=== PATIENT | male | born 1940 | race Caucasian/White ===

== ENCOUNTER 2023-04-02 12:14 | Emergency (ER) | payer MEDICARE, SELFPAY ==
[2023-04-02 12:30] VITALS: BP 151/50; PULSE 86; RESP 20; TEMP 38; O2SAT 100
[2023-04-02 12:43] VITALS: BP 151/50; PULSE 86; RESP 20; TEMP 38; O2SAT 100
--- NOTE | 2023-04-02 12:49 | ED.URI ---
HPI - URI/Sore Throat General Chief Complaint: Upper Respiratory Infection Stated Complaint: Cough/Sinus Source: patient, family and RN notes reviewed History of Present Illness HPI Narrative: 82 yo M presents to urgent care with at side. Pt states he developed congestion and a cough yesterday. Pt tested himself this morning with an Covid test at home and it read +. Pt states he's not sure if the test is accurate b/c it was . Pt denies any chest pain, SOB, vomiting, diarrhea, fevers, chills, or ear pain. Pt has not taken anything for his symptoms. Related Data Home Medications Medication Instructions Recorded Confirmed amlodipine 10 mg tablet mg 04/02/23 aspirin 81 mg chewable tablet 81 mg PO DAILY 04/02/23 04/02/23 fish [id number] C-vit E 2,000 g PO 04/02/23 mg-650 mg-12 mg/2.5 g emulsion packt levothyroxine 50 mcg tablet mcg 04/02/23 losartan 100 tablet 04/02/23 mg-hydrochlorothiazide 25 mg tablet metformin 1,000 mg tablet mg 04/02/23 rosuvastatin 10 mg tablet mg 04/02/23 sitagliptin phosphate 100 mg mg 04/02/23 tablet (Januvia) ticagrelor 90 mg tablet (Brilinta) mg 04/02/23 Allergies Allergy/AdvReac Type Severity Reaction Status Date / Time No Known Allergies Allergy Verified 04/02/23 12:41 Review of Systems Review of Systems: Pertinent positives and pertinent negatives per HPI. [facility] Family History Family History (Updated 03/18/23 @ 11:23 by Beulah Petty, ELEANOR) Father Heart attack Cerebrovascular accident Malignant neoplasm of prostate Diabetes mellitus Sibling Lung cancer Mother Diabetes mellitus Other Cancer Social History Social History Smoking packs per day: 1 Smoking cigarettes per day: 20.0 Years smoked: 12 Smoking pack-years: 12.00 Smoking status: Former smoker Comments At the time of my signature, I reviewed and agree with the nursing past medical, surgical, social, and family history. There is no relevant family history pertinent to the patient complaint. Exam Narrative: GENERAL: This is a well-nourished, well-developed patient, in no apparent distress. HEAD: normocephalic, atraumatic. EYES: Sclera clear/white. Vision is grossly intact. EARS: External ears normal, auditory canals clear and without drainage, TMs normal without perforation. Hearing grossly intact. NOSE: External nose normal with no obvious nasal discharge, nares without redness, no rhinorrhea. THROAT: Mucous membranes moist, posterior pharynx clear. NECK: Neck supple, non-tender without lymphadenopathy, masses or thyromegaly. CARDIOVASCULAR: Regular rate and rhythm without murmurs, gallops, or rubs. RESPIRATORY: Clear to auscultation. Breath sounds equal bilaterally. No wheezes, rales, or rhonchi. SKIN: warm, intact with no suspicious lesions or rash, good texture and turgor. NEURO: awake, alert, and oriented to person, place and time. There were no obvious focal neurologic abnormalities. EXTREMITIES: No clubbing, cyanosis, or edema. No joint tenderness, effusion, or edema noted. BACK: Nontender without deformity or crepitus. No flank tenderness. Course Course Level of Care: Express Care Visit Vital Signs Vital signs: Vital Signs Temperature 100.4 F H 04/02/23 12:30 Pulse Rate 86 04/02/23 12:30 Respiratory Rate 20 04/02/23 12:30 Blood Pressure 151/50 H 04/02/23 12:30 Pulse Oximetry 100 04/02/23 12:30 Oxygen Delivery Room Air 04/02/23 12:30 Temperature 100.4 F H 04/02/23 12:43 Pulse Rate 86 04/02/23 12:43 Respiratory Rate 20 04/02/23 12:43 Blood Pressure 151/50 H 04/02/23 12:43 Pulse Oximetry 100 04/02/23 12:43 Oxygen Delivery Room Air 04/02/23 12:43 reviewed MDM - URI/Sore Throat MDM Narrative Medical decision making narrative: Take the FLonase as directed. Get plenty of fluids and vitamin C (broccoli and peppers are good sources of vitamin C). Call your emergency medicine physician on Tuesday
== END 2023-04-02 12:56 | disposition home or self-care (01) ==
PROVIDERS: Emergency Provider Nurse Practitioner Family; PCP Internal Medicine
DX: U07.1 COVID-19 (principal); Z87.891 Personal history of nicotine dependence
CPT/HCPCS: 99203; G0463

== ENCOUNTER 2023-06-22 13:30 | Outpatient (RCR) | payer MEDICARE, SELFPAY ==
[2023-05-26 14:54] LABS: Glucose Point of Care 88 mg/dl (65-105)
== END 2023-06-22 15:01 | disposition home or self-care (01) ==
LOC: ANHCPREHAB 13:30
DX: Z95.5 Presence of coronary angioplasty implant and graft (principal)
CPT/HCPCS: 93798

== ENCOUNTER 2023-09-07 01:12 | Day surgery (SDC) | payer MEDICARE, SELFPAY ==
[2023-08-19 14:40] VITALS: BMI 25.9
--- NOTE | 2023-09-01 16:05 | PC.NURSE ---
Spoke with patient regarding medication BRILINTA. Pt. verbalizes understanding that the last dose of BRILINTA is to be taken on 09/02/2023 and the Endoscopist will instruct them when to restart after the procedure.
--- NOTE | 2023-09-05 09:18 | SUR.PREOP ---
Patient called regarding upcoming procedure. Reviewed preop instructions, appointment times, and procedure prep.
--- NOTE | 2023-09-06 18:36 | PM.HPGS ---
History of Present Illness History of Present Illness Consent: Risks, benefits, and alternatives have been discussed and questions answered. Patient agrees to proceed with procedure. Chief complaint: hx of other malignant neoplasm of large intestine Narrative: Ernesto Castro Jr. is a 83 year old male With a history of colon cancer (dx in 2017, s/p sigmoid colon resection and chemo) is referred for evaluation of rectal bleeding. Pt states he noticed blood go down the drain while taking a shower last Tuesday. When he got out of the shower and dried off, he realized it was coming from the rectum. States it was about a tsp of blood. He has not seen any rectal bleeding since. His last colonoscopy was [address] Reis. Review of Systems Review of Systems: All systems reviewed & are unremarkable except as noted in HPI and below PMFSH Past Medical History Medical History CAD (coronary artery disease) History of colon cancer HLD (hyperlipidemia) HTN (hypertension) Rectal bleeding Family History Family History Father Heart attack Cerebrovascular accident Malignant neoplasm of prostate Diabetes mellitus Sibling Lung cancer Mother Diabetes mellitus Other Cancer Social History Social History Smoking packs per day: 1 Smoking cigarettes per day: 20.0 Years smoked: 12 Smoking pack-years: 12.00 Smoking status: Former smoker Tobacco type: cigarettes Substance use type: does not use Living arrangements: with family Spiritual care concerns: No Meds Home Medications and Allergies Home Medications Medication Instructions Recorded Confirmed Type amlodipine 10 mg tablet 10 mg PO DAILY 04/02/23 08/19/23 History aspirin 81 mg chewable tablet 81 mg PO DAILY 04/02/23 08/19/23 History levothyroxine 50 mcg tablet 50 mcg PO DAILY 04/02/23 08/19/23 History losartan 100 1 tablet PO DAILY 04/02/23 08/19/23 History mg-hydrochlorothiazide 25 mg tablet metformin 1,000 mg tablet 1,000 mg PO BID 04/02/23 08/19/23 History rosuvastatin 10 mg tablet 10 mg PO DAILY 04/02/23 08/19/23 History sitagliptin phosphate 100 mg 100 mg PO DAILY 04/02/23 08/19/23 History tablet (Januvia) ticagrelor 90 mg tablet (Brilinta) 90 mg PO BID 04/02/23 08/19/23 History ascorbic acid (vitamin C) 500 mg 500 mg PO DAILY 08/19/23 08/19/23 History tablet cholecalciferol (vitamin D3) 25 25 mcg PO DAILY 08/19/23 08/19/23 History mcg (1,000 unit) tablet (Vitamin D3) ferrous sulfate 325 mg (65 mg 325 mg PO DAILY 08/19/23 08/19/23 History iron) tablet glimepiride 2 mg tablet 2 mg PO DAILY 08/19/23 08/19/23 History hydrocortisone 1 % topical cream 1 applic RECTAL BID 08/19/23 08/19/23 History with perineal applicator multivitamin with minerals-folic 1 tablet PO DAILY 08/19/23 08/19/23 History acid 0.4 mg tablet naproxen 500 mg tablet 500 mg PO BID PRN Pain 08/19/23 08/19/23 History Allergies Allergy/AdvReac Type Severity Reaction Status Date / Time No Known Allergies Allergy Verified 09/07/23 11:08 Exam Resp: Auscultation: clear to auscultation bilaterally Cardio: Rate: regular rate Rhythm: regular rhythm GI: GI Palp: Yes Soft to palpation and No Tenderness to palpation present (GI) Assessment and Plan Assessment and plan (1) History of colon cancer: Code(s): Z85.038 - Personal history of other malignant neoplasm of large intestine Status: Acute Assessment and Plan: Colonoscopy with possible biopsy or polypectomy or cautery or injection of substances. (2) Rectal bleeding: Code(s): K62.5 - Hemorrhage of anus and rectum Status: Acute
[2023-09-07 11:15] VITALS: BP 154/61; PULSE 62; RESP 19; TEMP 36.2; O2SAT 100
[2023-09-07 11:27] LABS: Glucose Point of Care 118 mg/dl (65-105)
[2023-09-07] MEDS: LACTATED RINGERS 1,000 ML 150 ML IV CONT (11:27)
--- NOTE | 2023-09-07 12:24 | WPDANESEPPF ---
Anes - Initial Pre Proc Eval Procedure: Operation Date: 09/07/23 12:30 Proposed Procedures p Colonoscopy - Phuc Jacobsne MD Date/Time: 09/07/23 12:24 Surgeon: Phuc Jacobsen MD Pre Op Diagnosis: hx of other malignant neoplasm of large intestine Patient Data Age: 83 Gender: M Height: 1.83 m Weight: 87.9 kg Last Vital Signs Temp 97.2 F L 09/07/23 11:15 Pulse 62 09/07/23 11:15 Resp 19 09/07/23 11:15 BP 154/61 H 09/07/23 11:15 Pulse Ox 100 09/07/23 11:15 O2 Del Method Room Air 09/07/23 11:15 Allergies Allergy/AdvReac Type Severity Reaction Status Date / Time No Known Allergies Allergy Verified 09/07/23 11:08 Home Medications Medication Instructions Recorded Confirmed Type amlodipine 10 mg tablet 10 mg PO DAILY 04/02/23 08/19/23 History aspirin 81 mg chewable tablet 81 mg PO DAILY 04/02/23 08/19/23 History levothyroxine 50 mcg tablet 50 mcg PO DAILY 04/02/23 08/19/23 History losartan 100 1 tablet PO DAILY 04/02/23 08/19/23 History mg-hydrochlorothiazide 25 mg tablet metformin 1,000 mg tablet 1,000 mg PO BID 04/02/23 08/19/23 History rosuvastatin 10 mg tablet 10 mg PO DAILY 04/02/23 08/19/23 History sitagliptin phosphate 100 mg 100 mg PO DAILY 04/02/23 08/19/23 History tablet (Januvia) ticagrelor 90 mg tablet (Brilinta) 90 mg PO BID 04/02/23 08/19/23 History ascorbic acid (vitamin C) 500 mg 500 mg PO DAILY 08/19/23 08/19/23 History tablet cholecalciferol (vitamin D3) 25 25 mcg PO DAILY 08/19/23 08/19/23 History mcg (1,000 unit) tablet (Vitamin D3) ferrous sulfate 325 mg (65 mg 325 mg PO DAILY 08/19/23 08/19/23 History iron) tablet glimepiride 2 mg tablet 2 mg PO DAILY 08/19/23 08/19/23 History hydrocortisone 1 % topical cream 1 applic RECTAL BID 08/19/23 08/19/23 History with perineal applicator multivitamin with minerals-folic 1 tablet PO DAILY 08/19/23 08/19/23 History acid 0.4 mg tablet naproxen 500 mg tablet 500 mg PO BID PRN Pain 08/19/23 08/19/23 History Laboratory Tests 09/07/23 11:25 POC Capillary Glucose 118 H mg/dl (65-105) Patient hx anesthesia problems: none Family hx anesthesia problems: none Results Review: All pre-operative results and documents have been reviewed as part of the pre-operative evaluation. [facility] Past Medical History Medical History CAD (coronary artery disease) History of colon cancer HLD (hyperlipidemia) HTN (hypertension) Rectal bleeding Family History Family History Father Heart attack Cerebrovascular accident Malignant neoplasm of prostate Diabetes mellitus Sibling Lung cancer Mother Diabetes mellitus Other Cancer Social History Social History Smoking packs per day: 1 Smoking cigarettes per day: 20.0 Years smoked: 12 Smoking pack-years: 12.00 Smoking status: Former smoker Tobacco type: cigarettes Substance use type: does not use Living arrangements: with family Spiritual care concerns: No Anes - Eval Final PreProcedure Day of Procedure 09/07/23 12:24 Patient weight: normal Heart: irregular rhythm Lungs: clear to auscultation Airway: Mallampati scale class II Neurological: alert and oriented Last oral intake: >/= 8 hours ASA classification: III Emergent: no Anesthetic plan: proceed Anesthesia type and monitoring: general GIVS and standard monitoring Results Review: All pre-operative results and documents have been reviewed as part of the pre-operative evaluation. Informed Consent: The patient's anesthetic plan and its attendant risks and benefits were discussed with the patient/family/POA. Questions were solicited and answers provided to the satisfaction of the patient/family/POA.
[2023-09-07 12:54] VITALS: BP 112/55; PULSE 59; RESP 21; O2SAT 99
[2023-09-07 13:04] VITALS: BP 125/62; PULSE 62; RESP 24; O2SAT 99
[2023-09-07 13:14] VITALS: BP 134/63; PULSE 57; RESP 26; O2SAT 100
== END 2023-09-07 13:30 | disposition home or self-care (01) ==
PROVIDERS: PCP Internal Medicine; Visit Provider Internal Medicine Gastroenterology
PROC: 0DJD8ZZ Inspection of Lower Intestinal Tract, Via Natural or Artificial Opening Endoscopic (ICD-10-PCS; CPT 45378; principal; 2023-09-07 12:30)
DX: K62.1 Rectal polyp (principal); K64.8 Other hemorrhoids; Z98.0 Intestinal bypass and anastomosis status; Z90.49 Acquired absence of other specified parts of digestive tract; Z85.038 Personal history of other malignant neoplasm of large intestine; Z92.21 Personal history of antineoplastic chemotherapy; I10 Essential (primary) hypertension; I25.10 Atherosclerotic heart disease of native coronary artery without angina pectoris; E78.5 Hyperlipidemia, unspecified; Z87.891 Personal history of nicotine dependence; Z79.84 Long term (current) use of oral hypoglycemic drugs; Z79.82 Long term (current) use of aspirin
CPT/HCPCS: 45380; 82948; 88305; J2704; J7120

== ENCOUNTER 2024-08-07 10:17 | Emergency (ER) | payer MEDICARE, SELFPAY ==
--- NOTE | 2024-08-07 10:20 | ED_ITS ---
HPI - Ear Problem General Chief complaint: Ear Stated complaint: wants ears cleaned out Time Seen by Provider: 08/07/24 10:31 Source: patient, RN notes reviewed and old records reviewed Mode of arrival: ambulatory Limitations: no limitations History of Present Illness HPI Narrative: 84-year-old male presents to the [facility] where wanting his ears cleaned out. Patient states that he has a hearing test this afternoon and was told he needed to have all of his wax out of his ear. Presents just to have his ears checked and cleaned if needed Related Data Home Medications ?Medication ?Instructions ?Recorded ?Confirmed ?Last Taken ?Type amlodipine 10 mg tablet 10 mg PO DAILY 04/02/23 08/07/24 09/07/23 08:30 History aspirin 81 mg chewable tablet 81 mg PO DAILY 04/02/23 08/07/24 Unknown History levothyroxine 50 mcg tablet 50 mcg PO DAILY 04/02/23 08/07/24 09/07/23 08:30 History losartan 100 1 tablet PO DAILY 04/02/23 08/07/24 09/07/23 08:30 History mg-hydrochlorothiazide 25 mg tablet metformin 1,000 mg tablet 1,000 mg PO BID 04/02/23 08/07/24 Unknown History rosuvastatin 10 mg tablet 10 mg PO DAILY 04/02/23 08/07/24 Unknown History sitagliptin phosphate 100 mg 100 mg PO DAILY 04/02/23 08/07/24 Unknown History tablet (Januvia) ticagrelor 90 mg tablet (Brilinta) 90 mg PO BID 04/02/23 08/07/24 09/02/23 Histo ry ascorbic acid (vitamin C) 500 mg 500 mg PO DAILY 08/19/23 08/07/24 Unknown History tablet cholecalciferol (vitamin D3) 25 25 mcg PO DAILY 08/19/23 08/07/24 09/07/23 08:30 History mcg (1,000 unit) tablet (Vitamin D3) ferrous sulfate 325 mg (65 mg 325 mg PO DAILY 08/19/23 08/07/24 Unknown History iron) tablet glimepiride 2 mg tablet 2 mg PO DAILY 08/19/23 08/07/24 Unknown History multivitamin with minerals-folic 1 tablet PO DAILY 08/19/23 08/07/24 09/07/23 08:30 History acid 0.4 mg tablet naproxen 500 mg tablet 500 mg PO BID PRN Pain 08/19/23 08/07/24 Unknown History Allergies Allergy/AdvReac Type Severity Reaction Status Date / Time No Known Allergies Allergy Verified 08/07/24 10:23 Review of Systems Review of Systems: All systems reviewed & are unremarkable except as noted in HPI and below Constitutional: Constitutional: Reports no additional constitutional complaints ENT: Reports system reviewed and no additional complaints, except as documented Cardiovascular: Cardiovascular: Reports no additional cardiovascular complaints, Denies chest pain and Denies dyspnea Respiratory: Respiratory: Reports no additional respiratory complaints, Denies chest congestion, Denies cough and Denies dyspnea Musculoskeletal: Musculoskeletal: Reports no additional musculoskeletal complaints Integumentary/Breasts: Skin/Breast: Reports system reviewed and no additional complaints, except as docu PMFSH Past Medical History Medical History HLD (hyperlipidemia) HTN (hypertension) CAD (coronary artery disease) History of colon cancer Rectal bleeding Family History Family History Father Heart attack Cerebrovascular accident Malignant neoplasm of prostate Diabetes mellitus Sibling Lung cancer Mother Diabetes mellitus Other Cancer Social History Social History Smoking packs per day: 1 Smoking cigarettes per day: 20.0 Years smoked: 12 Smoking pack-years: 12.00 Smoking status: Former smoker Tobacco type: cigarettes Substance use type: does not use Living arrangements: with family Spiritual care concerns: No Comments At the time of my signature, I reviewed and agree with the nursing past medical, surgical, social, and family history. There is no relevant family history pertinent to the patient complaint. Exam Const: General: cooperative, healthy appearing, comfortable, no acute distress, well developed, alert and well nourished Nutritional Appearance: well nourished Orientation/consciousness: patient oriented x3 Limitations: no limitations HENMT: Head: normal to inspection Ears: hearing grossly normal bilaterally, external ears normal, TM normal on the right, TM normal on the left, mastoids normal, no periauricular adenopathy and Abnormal EAC present excessive cerumen on the left; no erythema and no EA tenderness Eyes: General: appearance normal, both eyes and all related structures Alignment and Position: alignment normal Neck: Neck: normal visual inspection, full ROM, no lymphadenopathy and no meningeal signs Chest: Chest palpation & inspection: normal inspection of the chest Resp: Effort & Inspection: normal respiratory effort and able to speak in complete sentences Cardio: Rate: regular rate Skin: General skin exam: normal color and no rashes or lesions noted Neuro: General: patient oriented x3, gait normal, moves all extremities and no meningeal signs Cognition (Neuro): normal cognition Speech: normal speech Gait exam (Neuro): Normal gait present Extrem: General: normal to inspection, full ROM, capillary refill normal and normal gait Psych: Appearance: grossly normal and well kempt Mental Status: mental status grossly normal Speech and movement: Normal speech and movement present and Clear speech present Affect: normal affect Attitude: cooperative Course Course Level of Care: Express Care Visit Vital Signs Vital signs: Vital Signs Temperature 97.1 F L 08/07/24 10:26 Pulse Rate 64 08/07/24 10:26 Respiratory Rate 16 08/07/24 10:26 Blood Pressure 107/53 L 08/07/24 10:26 Pulse Oximetry 100 08/07/24 10:26 Oxygen Delivery Room Air 08/07/24 10:26 Temperature 97.1 F L 08/07/24 10:26 Pulse Rate 64 08/07/24 10:26 Respiratory Rate 16 08/07/24 10:26 Blood Pressure 107/53 L 08/07/24 10:26 Pulse Oximetry 100 08/07/24 10:26 Oxygen Delivery Room Air 08/07/24 10:26 Reviewed Procedures Ear Wax Removal Left Ear: Ear Wax Removal Date: 08/07/24 Ear Wax Removal Time: 10:37 Cerumenolytic Used: other (peroxide and water) Results: Re-examined: some cerumen remains TM Examination: TM(s) intact, normal appearance Ear Canal Exam: atraumatic Patient Tolerated Procedure: well Complications: no problems Technique: ear canal irrigated and ear canal curetted Medical Decision Making MDM Narrative Medical decision making narrative: Patient sitting comfortably in exam room. Nontoxic, vitals stable. Patient in no acute distress Patient presents for earwax remover if there is any and ear canals. Has an appointment for hearing test this afternoon. Right ear canal is clear, left ear canal small amount of cerumen, irrigated and was able to clean out. Patient tolerated procedure well. Patient appropriate for outpatient treatment and follow-up Discharge instructions reviewed with patient, as well as provided in writing pe r nursing staff. The instructions also include specific and strict return/GO TO THE ER as well as f/u information. All questions have been answered, and the patient deny any further questions with discharge and discharge plan. Some parts of this dictation were generated by voice recognition software and may contain typographical and/or grammatical inaccuracies. Differential Diagnosis Differential Diagnosis: Ear check, excessive cerumen Medical Records Medical records reviewed: Yes I reviewed the external patient's medical records. Vital Signs Vital Signs: Vital Signs Temperature 97.1 F L 08/07/24 10:26 Pulse Rate 64 08/07/24 10:26 Respiratory Rate 16 08/07/24 10:26 Blood Pressure 107/53 L 08/07/24 10:26 Pulse Oximetry 100 08/07/24 10:26 Oxygen Delivery Room Air 08/07/24 10:26 Temperature 97.1 F L 08/07/24 10:26 Pulse Rate 64 08/07/24 10:26 Respiratory Rate 16 08/07/24 10:26 Blood Pressure 107/53 L 08/07/24 10:26 Pulse Oximetry 100 08/07/24 10:26 Oxygen Delivery Room Air 08/07/24 10:26 Reviewed Lab Data Lab results reviewed: Yes I reviewed the patient's lab results. Labs: Reviewed Critical Care Time Critical Care Time Critical Care Time: No Discharge Plan Discharge Clinical Impression: Excessive cerumen in left ear canal Patient Disposition: Home, Self-Care Condition: Stable Instructions: Antibiotic Form, Carbamide Peroxide (Into the ear) Patient Language: Japanese Prescriptions: No Action losartan-hydrochlorothiazide 100-25 mg tablet 1 tablet PO DAILY amlodipine 10 mg tablet 10 mg PO DAILY levothyroxine 50 mcg tablet 50 mcg PO DAILY metformin 1,000 mg tablet 1,000 mg PO BID aspirin 81 mg Tablet,Chewable 81 mg PO DAILY rosuvastatin 10 mg tablet 10 mg PO DAILY Januvia 100 mg tablet 100 mg PO DAILY Brilinta 90 mg tablet 90 mg PO BID glimepiride 2 mg tablet 2 mg PO DAILY ascorbic acid (vitamin C) 500 mg Tablet 500 mg PO DAILY ferrous sulfate 325 mg (65 mg iron) Tablet 325 mg PO DAILY naproxen 500 mg tablet 500 mg PO BID PRN (Reason: Pain) cholecalciferol (vitamin D3) [Vitamin D3] 25 mcg (1,000 unit) Tablet 25 mcg PO DAILY multivit with min-folic acid [Adult One Daily Multivitamin] 0.4 mg Tablet 1 tablet PO DAILY Follow-up/Referrals: Satish,MD Figueroa [Primary Care Provider] - [facility] Time of Disposition: 10:41
[2024-08-07 10:26] VITALS: BP 107/53; PULSE 64; RESP 16; TEMP 36.2; O2SAT 100
== END 2024-08-07 10:50 | disposition home or self-care (01) ==
PROVIDERS: Emergency Provider Nurse Practitioner; PCP Internal Medicine
DX: H61.22 Impacted cerumen, left ear (principal); Z87.891 Personal history of nicotine dependence; I10 Essential (primary) hypertension; I25.10 Atherosclerotic heart disease of native coronary artery without angina pectoris; E78.5 Hyperlipidemia, unspecified; Z79.82 Long term (current) use of aspirin
CPT/HCPCS: 69210; 99212; G0463

== ENCOUNTER 2024-12-05 15:40 | Emergency (ER) | payer MEDICARE, SELFPAY ==
[2024-12-05 15:45] VITALS: BP 110/58; PULSE 59; RESP 12; TEMP 36.3; O2SAT 100
--- NOTE | 2024-12-05 16:36 | ED.EAR ---
HPI - Ear Problem General Chief complaint: Ear Stated complaint: tip of hearing aide stuck in left ear Time Seen by Provider: 12/05/24 16:15 Source: patient and RN notes reviewed Mode of arrival: ambulatory Limitations: no limitations History of Present Illness HPI Narrative: 84-year-old male presents Express [facility] complaining foreign body in left ear. Patient stated that an hour ago of a part of his hearing aid broke off and remain stuck in his left ear canal. Patient denies any pain but reports feeling something in his left ear. Patient unable to get it down the stone. Patient has no other complaints. Related Data Home Medications ?Medication ?Instructions ?Recorded ?Confirmed ?Last Taken ?Type amlodipine 10 mg tablet 10 mg PO DAILY 04/02/23 12/05/24 09/07/23 08:30 History aspirin 81 mg chewable tablet 81 mg PO DAILY 04/02/23 12/05/24 Unknown History levothyroxine 50 mcg tablet 50 mcg PO DAILY 04/02/23 12/05/24 09/07/23 08:30 History losartan 100 1 tablet PO DAILY 04/02/23 12/05/24 09/07/23 08:30 History mg-hydrochlorothiazide 25 mg tablet metformin 1,000 mg tablet 1,000 mg PO BID 04/02/23 12/05/24 Unknown History rosuvastatin 10 mg tablet 10 mg PO DAILY 04/02/23 12/05/24 Unknown History sitagliptin phosphate 100 mg 100 mg PO DAILY 04/02/23 12/05/24 Unknown History tablet (Januvia) ticagrelor 90 mg tablet (Brilinta) 90 mg PO BID 04/02/23 12/05/24 09/02/23 History ascorbic acid (vitamin C) 500 mg 500 mg PO DAILY 08/19/23 12/05/24 Unknown History tablet cholecalciferol (vitamin D3) 25 25 mcg PO DAILY 08/19/23 12/05/24 09/07/23 08:30 History mcg (1,000 unit) tablet (Vitamin D3) ferrous sulfate 325 mg (65 mg 325 mg PO DAILY 08/19/23 12/05/24 Unknown History iron) tablet glimepiride 2 mg tablet 2 mg PO DAILY 08/19/23 12/05/24 Unknown History multivitamin with minerals-folic 1 tablet PO DAILY 08/19/23 12/05/24 09/07/23 08:30 History acid 0.4 mg tablet naproxen 500 mg tablet 500 mg PO BID PRN Pain 08/19/23 12/05/24 Unknown History furosemide 40 mg tablet 40 mg PO DAILY 12/05/24 12/05/24 Unknown History Allergies Allergy/AdvReac Type Severity Reaction Status Date / Time No Known Allergies Allergy Verified 12/05/24 16:32 Review of Systems Review of Systems: CONSTITUTIONAL: Denies fever, chills, or sweats. EYES: Denies visual changes, redness, or discharge. ENT: Denies rhinorrhea, congestion, sore throat, or otalgia. Positive foreign body in ear. CARDIOVASCULAR: Denies chest pain, palpitations, or edema. RESPIRATORY: Denies cough or dyspnea. GASTROINTESTINAL: Denies abdominal pain, nausea, vomiting, or diarrhea. GENITOURINARY: Denies dysuria or hematuria. SKIN: Denies rash or itching. MUSCULOSKELETAL: Denies back pain, joint pain, or myalgia. NEUROLOGIC: Denies headache, numbness, or weakness. PSYCHIATRIC: Denies anxiety or depression. All other systems reviewed are negative, except as documented in HPI. [facility] Past Medical History Medical History HLD (hyperlipidemia) HTN (hypertension) CAD (coronary artery disease) History of colon cancer Rectal bleeding Family History Family History Father Heart attack Cerebrovascular accident Malignant neoplasm of prostate Diabetes mellitus Sibling Lung cancer Mother Diabetes mellitus Other Cancer Social History Social History Smoking packs per day: 1 Smoking cigarettes per day: 20.0 Years smoked: 12 Smoking pack-years: 12.00 Smoking status: Former smoker Tobacco type: cigarettes Substance use type: does not use Living arrangements: with family Spiritual care concerns: No Comments At the time of my signature, I reviewed and agree with the nursing past medical, surgical, social, and family history. There is no relevant family history pertinent to the patient complaint. Exam Narrative: GENERAL: This is a well-nourished, well-developed adult, in no apparent distress. They are non ill-appearing, nontoxic appearing. Patient is wearing glasses. HEAD: normocephalic, atraumatic. EYES: Sclera clear/white. Conjunctiva normal. Vision is grossly intact. Extraocular movements intact EARS: External ears normal, right auditory canal clear and without drainage, left auditory canal with foreign body present located closer to the entrance of the auditory canal. TMs normal without perforation. Hearing grossly intact. NOSE: External nose normal THROAT: Mucous membranes moist NECK: Neck supple CARDIOVASCULAR: Regular rate and rhythm RESPIRATORY: Respiratory rate normal, respiratory effort nonlabored, no respiratory distress SKIN: warm, Dry, intact with no suspicious lesions or rash, good texture and turgor. NEURO: awake, alert, and oriented to person, place and time. There were no obvious focal neurologic abnormalities. EXTREMITIES: No joint tenderness, effusion, or edema noted. Course Course Emergency Course: Portions of this record may have been created with voice recognition software Level of Care: Express Care Visit Vital Signs Vital signs: Reviewed Procedures FB Removal Ear Foreign Body #1: Foreign Body Removal Date: 12/05/24 Foreign Body Removal Time: 16:20 Location: ear canal (L) Foreign Body Suspected: other (Part of a hearing aid) TM intact pre-procedure: yes Foreign Body Removed: yes Foreign Body Removal Technique: instrumentation (Alligator forceps) Tympanic Membrane Intact Post Procedure: Yes Patient Tolerated Procedure: well Complications: none Additional Comments: Patient tolerated procedure well. Successful removal foreign body in the left auditory canal. Medical Decision Making MDM Narrative Medical decision making narrative: Successful removal of foreign body in the left auditory canal. Foreign body appears to be part of his hearing aid that broke off. Left TM remains intact post foreign body removal. Discussed physical exam findings. Advised supportive measures and signs/symptoms to go to the ER. Pt is appropriate for outpt treatment and f/u. Differential Diagnosis Differential Diagnosis: Foreign body, otitis externa, otitis media Critical Care Time Critical Care Time Critical Care Time: No Discharge Plan Discharge Clinical Impression: Foreign body in ear Qualifiers: Encounter type: initial encounter Laterality: left Qualified Code(s): T16.2XXA - Foreign body in left ear, initial encounter Patient Disposition: Home Condition: Stable Instructions: Ear Foreign Body (ED) Additional Instructions: The foreign body is successfully removed out of your left ear canal. Please follow-up with your primary care provider in 3-5 days. Please go to the ER for any worsening concerns or symptoms. Patient Language: Setswana Prescriptions: No Action losartan-hydrochlorothiazide 100-25 mg tablet 1 tablet PO DAILY amlodipine 10 mg tablet 10 mg PO DAILY levothyroxine 50 mcg tablet 50 mcg PO DAILY metformin 1,000 mg tablet 1,000 mg PO BID aspirin 81 mg Tablet,Chewable 81 mg PO DAILY rosuvastatin 10 mg tablet 10 mg PO DAILY Januvia 100 mg tablet 100 mg PO DAILY ticagrelor [Brilinta] 90 mg tablet 90 mg PO BID furosemide 40 mg tablet 40 mg PO DAILY glimepiride 2 mg tablet 2 mg PO DAILY ascorbic acid (vitamin C) 500 mg Tablet 500 mg PO DAILY ferrous sulfate 325 mg (65 mg iron) Tablet 325 mg PO DAILY naproxen 500 mg tablet 500 mg PO BID PRN (Reason: Pain) cholecalciferol (vitamin D3) [Vitamin D3] 25 mcg (1,000 unit) Tablet 25 mcg PO DAILY multivit with min-folic acid [Adult One Daily Multivitamin] 0.4 mg Tablet 1 tablet PO DAILY Follow-up/Referrals: Satish,MD Figueroa [Primary Care Provider] - Time of Disposition: 16:24
== END 2024-12-05 16:25 | disposition home or self-care (01) ==
PROVIDERS: PCP Internal Medicine
DX: T16.2XXA Foreign body in left ear, initial encounter (principal); W44.G1XA Audio device entering into or through a natural orifice, initial encounter; Z87.891 Personal history of nicotine dependence; E78.5 Hyperlipidemia, unspecified; I10 Essential (primary) hypertension; I25.10 Atherosclerotic heart disease of native coronary artery without angina pectoris; Z85.038 Personal history of other malignant neoplasm of large intestine; Z79.82 Long term (current) use of aspirin
CPT/HCPCS: 69200; 99212; G0463